=== PATIENT | male | born 1965 | race American Indian/Alaskan Native ===

== ENCOUNTER 2021-07-08 04:32 | Day surgery (SDC) | payer OTHER ==
[2021-07-03 15:01] VITALS: BMI 25.9
[2021-07-08] MEDS ORDERED: PROPOFOL 20 ML ONE ×3 (08:55)
[2021-07-08] MEDS ORDERED: SUCCINYLCHOLINE CHLORIDE 200 MG/10 ML SYRINGE ONE (08:55)
[2021-07-08] MEDS ORDERED: ROCURONIUM BROMIDE 50 MG/5 ML SYRINGE ONE ×2 (08:56→12:01)
[2021-07-08] MEDS ORDERED: BUPIVACAINE LIPOSOME/PF (EXPAREL) 266 MG/20 ML VIAL ONE (08:59)
[2021-07-08] MEDS ORDERED: BUPIVACAINE HCL/PF 0.5% (5MG/ML) 10 ML VIAL ONE (09:00)
[2021-07-08] MEDS ORDERED: MIDAZOLAM HCL 2 MG/2 ML SINGLE DOSE VIAL ONE ×2 (09:50)
[2021-07-08] MEDS ORDERED: HYDROmorphone HCl 2 MG/ML VIAL ONE (10:15)
[2021-07-08] MEDS ORDERED: ceFAZolin SODIUM 1 GM VIAL IVPB ONE (10:23)
[2021-07-08] MEDS ORDERED: DEXAMETHASONE SOD PHOSPHATE 4 MG/1 ML VIAL ONE (10:36)
[2021-07-08] MEDS ORDERED: ceFAZolin SODIUM 1 GM VIAL ONE (10:36)
[2021-07-08] MEDS ORDERED: HEPARIN NA (PORCINE) 5,000 UNITS/ML 1ML VIAL ONE (10:42)
[2021-07-08] MEDS ORDERED: HEPARIN NA (PORCINE) 5,000 UNITS/ML 1ML VIAL SQ ONE (10:46)
[2021-07-08] MEDS ORDERED: KETOROLAC TROMETHAMINE 30 MG/1 ML VIAL ONE (11:03)
[2021-07-08] MEDS ORDERED: NEOSTIGMINE METHYLSULFATE 0.5 MG/ML - 10 ML MDV ONE (13:12)
[2021-07-08] MEDS ORDERED: GLYCOPYRROLATE 0.2 MG/1 ML VIAL ONE (13:13)
[2021-07-08] MEDS ORDERED: BACITRACIN 15 GM TUBE TOPICAL OINTMENT ONE (13:41)
[2021-07-08] MEDS ORDERED: BACITRACIN 15 GM TUBE TOPICAL OINTMENT TP ONE (13:55)
[2021-07-08] MEDS ORDERED: ONDANSETRON 4 MG/2 ML VIAL IVPUSH PRN (14:08)
[2021-07-08] MEDS ORDERED: oxyCODONE HCL 5 MG TABLET PO PRN (14:08)
[2021-07-08] MEDS ORDERED: ACETAMINOPHEN 1000 MG/100 ML BAG IVPB ONE ×2 (14:09→14:23)
[2021-07-08] MEDS ORDERED: LACTATED RINGERS SOLUTION 1,000 ML IV SCH (14:15)
[2021-07-08] MEDS ORDERED: ACETAMINOPHEN INJECTION 100 ML IVPB ONE (14:21)
[2021-07-08 16:24] VITALS: TEMP 97.3
[2021-07-08 19:04] VITALS: BP 130/67; PULSE 70
== END 2021-07-08 18:50 | disposition home or self-care (01) ==
LOC: JASU-SURG 04:32
PROVIDERS: ATTEND Surgery
PROC: 0WQF0ZZ Repair Abdominal Wall, Open Approach (ICD-10-PCS; 2021-07-08)
PROC: 0YUA4JZ Supplement Bilateral Inguinal Region with Synthetic Substitute, Percutaneous Endoscopic Approach (ICD-10-PCS; principal; 2021-07-08 10:00)
PROC: 8E0W4CZ Robotic Assisted Procedure of Trunk Region, Percutaneous Endoscopic Approach (ICD-10-PCS; 2021-07-08 10:00)
DX: K40.20 Bilateral inguinal hernia, without obstruction or gangrene, not specified as recurrent (principal); K42.9 Umbilical hernia without obstruction or gangrene
CPT/HCPCS: 49585; 49650; S2900; 88302-TC; 94760; J1644

== ENCOUNTER 2021-07-24 13:11 | Observation (INO) | payer OTHER ==
[2021-07-24] MEDS ORDERED: ASPIRIN 81 MG CHEWABLE TABLETS PO ONE (13:39)
[2021-07-24] MEDS ORDERED: ASPIRIN 81 MG CHEWABLE TABLETS ONE (13:41)
[2021-07-24 14:58] LABS: BASO % 0.7 % (0-2.0); EOS % 0.6 % (0-4.5); HEMATOCRIT 36.7 % (35.4-49); HEMOGLOBIN 12.4 GM/dL (11.7-16.9); LYMPH % 15.1 % (8-40); MCH 29.7 pg (25.7-33.7); MCHC 33.7 g/dl (32.0-35.9); MEAN CELL VOLUME 87.9 fl (80-96); NEUT % 74.6 % (42.8-82.8); PLATELET COUNT 366 10^3/uL (134-434); RBC 4.17 M/mm3 (4.00-5.60); RDW 13.7 % (11.9-15.9); WHITE BLOOD COUNT 9.5 K/mm3 (4.0-10.0)
[2021-07-24 15:05] LABS: INR 1.28 (0.83-1.09); PROTHROMBIN TIME (PATIENT) 14.8 SEC (9.7-13.0)
[2021-07-24 15:08] LABS: ACTIVATED PTT 33.6 SECONDS (25.2-36.5)
[2021-07-24 17:22] LABS: ALBUMIN 3.6 g/dl (3.4-5.0); BLOOD UREA NITROGEN 15.8 mg/dL (7-18); CALCIUM 9.3 mg/dL (8.5-10.1); MAGNESIUM 2.4 mg/dL (1.8-2.4)
[2021-07-24 17:27] LABS: BILIRUBIN,TOTAL 0.5 mg/dL (0.2-1)
[2021-07-24] MEDS ORDERED: HEPARIN NA (PORCINE) 5,000 UNITS/ML 1ML VIAL IVPUSH ONE (18:23)
[2021-07-24] MEDS ORDERED: HEPARIN NA (PORCINE) 5,000 UNITS/ML 1ML VIAL IVPUSH PRN ×2 (18:23)
[2021-07-24] MEDS ORDERED: HEPARIN INFUSION - 25,000 UNITS/500 ML INFUS.BAG IVPB SCH (18:30)
[2021-07-24] MEDS ORDERED: SODIUM CHLORIDE 0.9% 1000 ML INFUS.BAG IV ONE (18:35)
[2021-07-24] MEDS ORDERED: HEPARIN NA (PORCINE) 5,000 UNITS/ML 1ML VIAL ONE (18:36)
[2021-07-24] MEDS ORDERED: HEPARIN INFUSION - 25,000 UNITS/500 ML INFUS.BAG IVPB ONE (18:36)
[2021-07-24] MEDS ORDERED: APIXABAN 5 MG TABLET ONE (21:44)
[2021-07-24] MEDS: APIXABAN 5 MG TABLET PO SCH (21:47)
[2021-07-24] MEDS ORDERED: ACETAMINOPHEN 325 MG TABLET (FP) ONE (22:24)
[2021-07-24] MEDS: ACETAMINOPHEN 325 MG TABLET (FP) PO PRN (22:30)
[2021-07-25 03:19] VITALS: BMI 25.7
[2021-07-25] MEDS: ACETAMINOPHEN 325 MG TABLET (FP) PO PRN (04:41)
[2021-07-25 07:05] LABS: HEMOGLOBIN 11.4 GM/dL (11.7-16.9); MCH 29.3 pg (25.7-33.7); MCHC 33.6 g/dl (32.0-35.9); MEAN CELL VOLUME 87.4 fl (80-96); MEAN PLT VOLUME 8.5 fl (7.5-11.1); PLATELET COUNT 368 10^3/uL (134-434); RBC 3.89 M/mm3 (4.00-5.60); RDW 13.7 % (11.9-15.9); WHITE BLOOD COUNT 9.8 K/mm3 (4.0-10.0)
[2021-07-25] MEDS: APIXABAN 5 MG TABLET PO SCH ×2 (11:08→21:27)
[2021-07-25] MEDS: ACETAMINOPHEN 1000 MG/100 ML BAG IVPB PRN ×2 (11:56→20:10)
[2021-07-25] MEDS: LIDOCAINE 5% TOPICAL PATCH TP SCH (21:27)
[2021-07-25] MEDS ORDERED: LIDOCAINE PATCH REMOVAL MC SCH (22:00)
[2021-07-26] MEDS: ACETAMINOPHEN 325 MG TABLET (FP) PO PRN ×2 (08:09→21:23)
[2021-07-26] MEDS: APIXABAN 5 MG TABLET PO SCH ×2 (09:29→21:23)
[2021-07-26] MEDS: LIDOCAINE PATCH REMOVAL MC SCH (09:33)
[2021-07-26 21:02] LABS: BASO % 0.6 % (0-2.0); EOS % 1.1 % (0-4.5); HEMATOCRIT 34.2 % (35.4-49); HEMOGLOBIN 11.6 GM/dL (11.7-16.9); MCH 29.5 pg (25.7-33.7); MEAN PLT VOLUME 8.2 fl (7.5-11.1); MONO % 7.7 % (3.8-10.2); NEUT % 71.6 % (42.8-82.8); PLATELET COUNT 459 10^3/uL (134-434); RBC 3.93 M/mm3 (4.00-5.60); RDW 13.6 % (11.9-15.9); WHITE BLOOD COUNT 8.5 K/mm3 (4.0-10.0)
[2021-07-26] MEDS: LIDOCAINE 5% TOPICAL PATCH TP SCH (21:27)
[2021-07-26 22:03] LABS: PH,URINE 6.5 (5.0-8.0); URINE APPEARANCE CLEAR; URINE BILIRUBIN NEGATIVE (NEGATIVE); URINE COLOR YELLOW; URINE GLUCOSE (UA) NEGATIVE (NEGATIVE); URINE KETONE NEGATIVE (NEGATIVE); URINE LEUK ESTERASE NEGATIVE (NEGATIVE); URINE NITRITE NEGATIVE (NEGATIVE); URINE PROTEIN NEGATIVE (NEGATIVE)
[2021-07-27 08:14] VITALS: TEMP 99
[2021-07-27] MEDS: APIXABAN 5 MG TABLET PO SCH (10:18)
[2021-07-27] MEDS: LIDOCAINE PATCH REMOVAL MC SCH (13:08)
[2021-07-27 14:54] VITALS: BP 112/65; PULSE 72
== END 2021-07-27 18:50 | disposition home or self-care (01) ==
LOC: JER 13:11 → JERBED 16:28 → INTOOBSV 16:28 → UNDOADMOB 16:28 → J4S 18:48 → JERBED 07-25 02:12 → J4S 07-25 02:12
PROVIDERS: ADMIT Internal Medicine; ATTEND Internal Medicine
PROC: 3E033NZ Introduction of Analgesics, Hypnotics, Sedatives into Peripheral Vein, Percutaneous Approach (ICD-10-PCS; principal; 2021-07-24)
PROC: 3E033GC Introduction of Other Therapeutic Substance into Peripheral Vein, Percutaneous Approach (ICD-10-PCS; 2021-07-24)
PROC: 3E0337Z Introduction of Electrolytic and Water Balance Substance into Peripheral Vein, Percutaneous Approach (ICD-10-PCS; 2021-07-24)
DX: R94.31 Abnormal electrocardiogram [ECG] [EKG] (principal); R07.9 Chest pain, unspecified; I26.99 Other pulmonary embolism without acute cor pulmonale; Z29.9 Encounter for prophylactic measures, unspecified; Z86.711 Personal history of pulmonary embolism; Z86.16 Personal history of COVID-19; K42.9 Umbilical hernia without obstruction or gangrene
CPT/HCPCS: 36415; 71045-TC-FY; 71275-TC; 80053; 80061; 81003; 82550; 83735; 84484; 85025; 85027; 85610; 85730; 87040; 87086; 87186; 93005; 93010; 96365; 96366; 96375; 99285-25; C9803-CS; G0378; J1644; Q9967; U0003; U0005

== ENCOUNTER 2022-06-21 13:41 | Observation (INO) | payer OTHER ==
[2022-06-21 13:56] VITALS: RESP 18
[2022-06-21] MEDS ORDERED: KETOROLAC TROMETHAMINE 15 MG/ML VIAL IVPUSH ONE (15:17)
[2022-06-21] MEDS ORDERED: KETOROLAC TROMETHAMINE 15 MG/ML VIAL ONE (15:35)
[2022-06-21 15:44] LABS: BASO % 1.1 % (0-2.0); EOS % 0.8 % (0-4.5); HEMOGLOBIN 13.7 GM/dL (11.7-16.9); LYMPH % 39.5 % (8-40); MCH 29.7 pg (25.7-33.7); MCHC 33.3 g/dl (32.0-35.9); MEAN CELL VOLUME 89.4 fl (80-96); MEAN PLT VOLUME 9.3 fl (7.5-11.1); MONO % 8.5 % (3.8-10.2); NEUT % 50.1 % (42.8-82.8); PLATELET COUNT 295 10^3/uL (134-434); RBC 4.59 M/mm3 (4.00-5.60); RDW 13.6 % (11.9-15.9)
[2022-06-21 15:49] LABS: INR 1.18 (0.83-1.09); PROTHROMBIN TIME (PATIENT) 13.7 SEC (9.7-13.0)
[2022-06-21 15:52] LABS: ACTIVATED PTT 35.7 SECONDS (25.2-36.5)
[2022-06-21 16:05] LABS: CALCIUM 8.7 mg/dL (8.5-10.1)
[2022-06-21 16:06] LABS: ALBUMIN 3.7 g/dl (3.4-5.0); BLOOD UREA NITROGEN 14.5 mg/dL (7-18); MAGNESIUM 2.2 mg/dL (1.8-2.4)
[2022-06-21 16:09] LABS: CREATININE 0.8 mg/dL (0.55-1.3)
[2022-06-21 16:10] LABS: BILIRUBIN,TOTAL 0.5 mg/dL (0.2-1); TOT PROT 7.6 g/dl (6.4-8.2)
[2022-06-21] MEDS ORDERED: ASPIRIN 81 MG CHEWABLE TABLETS PO ONE (18:52)
[2022-06-21] MEDS ORDERED: ASPIRIN 81 MG CHEWABLE TABLETS ONE (19:23)
[2022-06-21] MEDS: APIXABAN 5 MG TABLET PO SCH (23:51)
[2022-06-22 04:06] VITALS: BMI 26.4
[2022-06-22 07:07] LABS: HEMATOCRIT 41.2 % (35.4-49); HEMOGLOBIN 13.6 GM/dL (11.7-16.9); MCH 29.1 pg (25.7-33.7); MEAN CELL VOLUME 88.2 fl (80-96); MEAN PLT VOLUME 8.9 fl (7.5-11.1); PLATELET COUNT 262 10^3/uL (134-434); RBC 4.67 M/mm3 (4.00-5.60); RDW 13.8 % (11.9-15.9); WHITE BLOOD COUNT 3.5 K/mm3 (4.0-10.0)
[2022-06-22 07:37] LABS: ALBUMIN 3.3 g/dl (3.4-5.0); BLOOD UREA NITROGEN 12.7 mg/dL (7-18); CALCIUM 8.7 mg/dL (8.5-10.1); MAGNESIUM 2.3 mg/dL (1.8-2.4)
[2022-06-22 07:40] LABS: CREATININE 0.8 mg/dL (0.55-1.3)
[2022-06-22 07:42] LABS: BILIRUBIN,TOTAL 0.7 mg/dL (0.2-1); TOT PROT 6.8 g/dl (6.4-8.2)
[2022-06-22] MEDS: APIXABAN 5 MG TABLET PO SCH (09:37)
[2022-06-22 13:43] VITALS: BP 122/63; PULSE 57; TEMP 98.5
== END 2022-06-22 15:43 | disposition home or self-care (01) ==
LOC: JER 13:41 → JERBED 14:39 → J4W 22:29
PROVIDERS: ADMIT Internal Medicine; ATTEND Internal Medicine
DX: R07.9 Chest pain, unspecified (principal); R06.02 Shortness of breath
CPT/HCPCS: 0241U-QW; 36415; 71045-TC-FY; 71275-TC; 80053; 80061; 83735; 84100; 84484; 85025; 85027; 85610; 85730; 93005; 93010; 93306-TC; 99285-25; G0378; Q9967